=== PATIENT | female | born 1960 | race Caucasian/White ===

== ENCOUNTER → 2024-01-07 08:58 | Outpatient (REF) | payer OTHER, SELFPAY | LOC: RAD 08:58 | PROVIDERS: ATTENDING PHYSICIAN Surgery Vascular Surgery | DX: I77.9 Disorder of arteries and arterioles, unspecified (principal) | CPT/HCPCS: 93922 ==

== ENCOUNTER → 2024-01-14 13:14 | Outpatient (REF) | payer OTHER, SELFPAY | LOC: HWRAD 13:14 | PROVIDERS: ATTENDING PHYSICIAN Surgery Vascular Surgery; FAMILY PHYSICIAN Family Medicine | DX: I77.9 Disorder of arteries and arterioles, unspecified (principal) | CPT/HCPCS: 75635; Q9967 ==

== ENCOUNTER 2024-02-26 06:15 | Inpatient (IN) | payer OTHER, SELFPAY ==
[2024-02-18 09:32] VITALS: BMI 28.7
[2024-02-18 10:06] LABS: % Basophils 0.6 % (0-2); % Eosinophils 1.2 % (0-6); % Immature Granulocytes 0.5 % (0-0.5); % Lymphocytes 19.8 % (20.5-51.1); % Neutrophils 68.9 % (42.2-75.2); Absolute Basophils 0.1 10^3/uL (0-0.2); Absolute Eosinophils 0.1 10^3/uL (0-0.7); Absolute Immature Granulocytes 0.1 10^3/uL (0-0.05); Absolute Lymphocytes 2.4 10^3/uL (1.2-3.4); Absolute Monocytes 1.1 10^3/uL (0.1-0.6); Absolute Neutrophils 8.2 10^3/uL (1.4-6.5); Hematocrit 41.3 % (37.0-47.0); Mean Corp Hgb Conc. 33.9 g/dL (33.0-37.0); Mean Corpuscular Volume 91.6 fL (81.0-99.0); Mean Platelet Volume 9.7 fL (7.4-10.4); Nucleated Red Blood Cells % 0 %; Platelet Count 250 10^3/uL (130-400); Red Blood Cell Count 4.51 10^6/uL (4.20-5.40); Red Cell Dist. Width 12.8 % (11.5-14.5); White Blood Cell Count 11.9 10^3/uL (4.8-10.8)
[2024-02-18 10:20] LABS: INR 0.95; PT 12.5 Sec (11.4-14.6)
[2024-02-18 10:21] LABS: APTT 27.4 Sec (23.4-35.0)
[2024-02-18 10:24] LABS: Blood Urea Nitrogen 11 mg/dl (7-17); Calcium 9.9 mg/dl (8.4-10.2); Carbon Dioxide 25 mmol/L (22-30); Chloride 103 mmol/L (98-107); Estimated Creatinine Clearance 81 ml/min; Glucose 128 mg/dl (70-99); Potassium 4.3 mmol/L (3.5-5.1); Sodium 135 mmol/L (135-145); eGFR > 60.00
[2024-02-26] VITALS (21 sets, daily range): BP systolic 104–178; BP diastolic 44–92
[2024-02-26] MEDS: BACTROBAN NASAL 1 GRAM NASAL (07:00)
[2024-02-26] MEDS: PERIDEX 0.12% ORAL RINSE 15 ML PO (07:10)
--- NOTE | 2024-02-26 08:09 | W.SUR.PREOP ---
Pre-Operative Surgical Note
-
I have examined this patient prior to the performance of the scheduled procedure.
The patient's condition is unchanged from the time of the current History and
Physical and the patient is able to undergo the scheduled procedure.
[2024-02-26 09:09] LABS: ACT-LR - POC 326 Seconds (116-155)
[2024-02-26 10:04] LABS: ACT-LR - POC 308 Seconds (116-155)
--- NOTE | 2024-02-26 10:41 | W.IMMPOSTOP ---
Surgical Immed Post Op Note
-
Primary Surgeon: Dr. Marvel Bautista MD
Assisting Surgeon: Dr. Lonnie Maher MD, PhD, PGY-1
Pre-op Diagnosis: Distal aortoiliac calcification and high grade stenosis
Post-op Diagnosis: Distal aortoiliac calcification and high grade stenosis
Procedure Performed: Diagnostic aortic and bilateral iliac arteriogram; bilateral common iliac artery intravascular lithotripsy with balloon angioplasty; aortoiliac stent grafting with AFX unibody device; uncovered self expanding stent in distal
left common iliac artery
Anesthesia Type: General
Specimen / Cultures: None
Estimated Blood Loss: 300cc
Complications: None
Operative Findings: Extensive disease was noted in the distal aorta and common iliac artery bifurcation. In particular, extensive high grade stenosis noted in the proximal left common iliac artery. Bilateral common iliac artery intravascular
lithotripsy was performed followed by sequential balloon angioplasty to 4mmHg and 6mmHg pressures. Aortoiliac stent grafting was performed with AFX unibody device with coverage across the common iliac bifurcation. At the conclusion of the case, a
small dissection was noted in the distal left common iliac artery, so a covered stent was placed. A perclose device was used to close the right groin. The left sheath was removed and held with manual pressure.
[2024-02-26 11:17] LABS: Hemoglobin 11.9 g/dL (12.0-16.0); Mean Corp Hgb Conc. 33.1 g/dL (33.0-37.0); Mean Corpuscular Volume 93.8 fL (81.0-99.0); Mean Platelet Volume 9.5 fL (7.4-10.4); Platelet Count 167 10^3/uL (130-400); Red Blood Cell Count 3.84 10^6/uL (4.20-5.40); Red Cell Dist. Width 12.5 % (11.5-14.5); White Blood Cell Count 6.7 10^3/uL (4.8-10.8)
[2024-02-26 11:27] LABS: INR 1.11; PT 14.1 Sec (11.4-14.6)
[2024-02-26 11:28] LABS: APTT 31.9 Sec (23.4-35.0)
[2024-02-26 11:31] LABS: Blood Urea Nitrogen 6 mg/dl (7-17); Calcium 8.2 mg/dl (8.4-10.2); Carbon Dioxide 22 mmol/L (22-30); Chloride 110 mmol/L (98-107); Estimated Creatinine Clearance 95 ml/min; Glucose 213 mg/dl (70-99); Potassium 3.9 mmol/L (3.5-5.1); Sodium 136 mmol/L (135-145); eGFR > 60.00
[2024-02-26] MEDS: NSS 1000 IV ×2 (11:54→17:57)
[2024-02-26] MEDS: PLAVIX 300 MG PO (11:56)
[2024-02-26] MEDS: BICITRA 30 ML PO (12:45)
[2024-02-26] MEDS: PROTONIX IV 40 MG IV (12:48)
--- NOTE | 2024-02-26 13:26 | SUR.PHASEI ---
vss throughout PACU stay. neurological checks good, slow to initially wake to talk, alert and oriented when fully awake, Denies pain, annoyed with O2 cannula and monitoring, denies pain. after plavix PO- and need to keep patient flat; c/o
indigestion. Dr Smith advised - protonix IV given and given Bicitra PO. spit bicitra and could not finish dose. [employer] contacted with lab results - note elevated glucose. pulse (DP and PT) palpable throughout stay in pacu
[2024-02-26] MEDS: NSS (PRESERVATIVE FREE) IV (14:04)
[2024-02-26 14:07] LABS: Glycohemoglobin (HgbA1c) 5.9 % (4.0-5.6)
--- NOTE | 2024-02-26 14:17 | OR.RPT ---
Operative Report
Operative Report
Date of Operation: 02/26/2024
Pre Op Diagnosis: Severe calcified atherosclerotic aortoiliac occlusive disease
Post Op Diagnosis: Severe calcified atherosclerotic aortoiliac occlusive disease
Procedure:
1.) BILATERAL intravascular lithotripsy to calcified common iliac artery stenoses (8 mm x 60 mm M5+ shockwave balloons bilaterally)
2.) Aortoiliac stent grafting using Endologix AFX device (80�30/13�40)
3.) Self-expanding stent placement to distal left common iliac artery/iliac bifurcation/proximal external iliac artery (8 mm x 40 mm Inova stent)
4.) Introduce wire/catheter into aorta from BILATERAL femoral artery access
5.) Ultrasound-guided percutaneous access BILATERAL common femoral arteries
6.) ProGlide closure of right common femoral artery access
Surgeon: Marvel Bautista III, MD
Chief Physical Therapist: Lonnie Maher MD PhD, PGY1
Anesthesia: General
Fluoroscopy:
30.4 minutes
490 mGy
107.15 DAP
Complications: None
Estimated Blood Loss: 100 cc
History and Indications for Procedure: 63-year-old female with severe calcified atherosclerotic disease involving her distal abdominal aorta and bilateral common iliac arteries.
Procedure in Detail: Gwendolyn Houser was correctly identified and placed supine on the operating table. After adequate induction of anesthesia the abdomen, pelvis and bilateral groins were positioned, prepped and draped in the usual sterile fashion.
Preoperative antibiotics were administered. A timeout procedure was performed with the nursing and anesthesia staff confirming the patients identity as well as the nature and laterality of the procedure.
Under ultrasound guidance, bilateral femoral artery sheath access was obtained. The arteries were patent. Posterior calcified plaque was present in the left common femoral artery. A pre-close technique was performed on the right femoral artery
access with 2 offset Proglide closure devices. The sutures were secured and tucked under surgical towels for use at the end of the case. An 8 Fr sheath was placed into the right femoral access. A 7 Fr sheath was placed into the left femoral access.
The patient was systemically heparinized.
On the right, a Bentson wire and pigtail catheter were advanced into the distal abdominal aorta. A diagnostic aortobiiliac arteriogram was performed with the pigtail catheter along with a retrograde left iliac arteriogram from the left femoral
sheath. The calcified distal aortic occlusive disease along with the bilateral calcified common iliac artery disease was clearly identified. Under roadmap guidance using a Glidewire and Quickcross catheter, the heavily calcified left common iliac
artery stenosis was crossed. The wire and catheter were advanced into the abdominal aorta. I then exchanged out for a 0.014 wire. On the right similarly I exchanged out for a 0.014 wire. Using a 4 mm angioplasty balloon I predilated the left
common iliac artery stenosis. Due to the heavily and severely calcified nature of the aortobiiliac disease and in an effort to modify the calcium to achieve maximum luminal gain with endovascular intervention I elected to proceed with intravascular
lithotripsy. BILATERAL 8 mm x 60 mm M5+ Shockwave balloons were placed across the common iliac artery stenoses under roadmap guidance. Alternating rounds of lithotripsy pulse delivery at sub-nominal pressure and angioplasty at nominal pressure was
performed. In between rounds of pulse delivery and angioplasty the balloon was deflated and repositioned under roadmap guidance. All 300 pulses were delivered from each balloon. Subsequent arteriogram demonstrated an excellent technical result with
significant improvement in the appearance of the common iliac arteries bilaterally.
From the right femoral access a KMP catheter and the 0.014 wire were advanced to the proximal descending thoracic aorta. The wire was exchanged out for a Lunderquist wire and the position marked on the back table. Over the Lunderquist wire in the
right femoral access I placed the AFX introducer sheath and advanced the radio-opaque sheath tip to the abdominal aorta. An En-Snare catheter was placed over the 0.014 wire from the left femoral access and advanced to the aortic bifurcation. The
En-Snare was then advanced through to the catheter tip.
The contralateral limb wire of the AFX main body was introduced through the introducer sheath and advanced to the aortic bifurcation. The 22-40/13-40 AFX bifurcated main body was then loaded onto the Lunderquist wire and advanced through the
introducer sheath. The wire was snared from the contralateral side and pulled out the left femoral access and the AFX2 main body was advanced until the limbs were above the aortic bifurcation. The entire system was then pulled down onto the aortic
bifurcation. The main body was then deployed by pulling the control cord.
The contralateral limb was then deployed by pulling the yellow limb cover. Once this was completed I advanced a pigtail catheter over the contralateral limb wire until the tip was in contact with the wire lock. The contralateral limb was then pulled
as I advanced the pigtail up to release it from the wire lock. The wire was removed and the formed pigtail catheter was then advanced proximally in the aorta. A Worl[place] wire was then placed through the pigtail catheter and the catheter removed.
The ipsilateral limb was deployed by pinning the inner core and retracting the AFX introducer sheath.
The delivery system was removed on the right. Bilateral 8 mm angioplasty balloons were advanced into the AFX iliac limbs. Balloon angioplasty was performed on the bilateral limbs simultaneously to nominal pressure.
A completion aortogram demonstrated an excellent technical result. The AFX stent and iliac limbs were widely patent. The iliac bifurcations were preserved bilaterally. On the left there appeared to be a flow-limiting circumferential dissection in
the distal [place] common iliac artery and at the iliac bifurcation. The location of the dissection was confirmed on retrograde imaging from the left femoral sheath. I treated this with an 8 mm x 40 mm self-expanding [employer] Inova stent.
The stent was placed in the desired location and deployed under radiographic guidance. Subsequent arteriogram demonstrated an excellent technical result with brisk flow through the left iliac limb which was widely patent. The distal [place] common
iliac artery, iliac bifurcation and external iliac artery on the left were widely patent.
Satisfied with this result I then concluded the procedure. The Proglide sutures on the right were secured after removing the sheath. An additional ProGlide closure device was fired at the 12 o'clock position on the right to achieve complete
hemostasis. Protamine was administered. The 7 [place] sheath was removed from the left femoral access. Manual pressure was applied to the puncture site. Hemostasis was achieved bilaterally.
Sterile dressings were applied.
The patient tolerated the procedure well and was taken to the PACU in stable condition.
Attestation: I was present and responsible for the entire procedure
Signed:
Marvel Bautista III, MD
[facility] Vascular Surgery
[phone] (cell)
[2024-02-26 14:20] LABS: Glucose - Point of Care 129 mg/dl (70-99)
[2024-02-26 14:56] LABS: Magnesium 1.8 mg/dl (1.6-2.3)
--- NOTE | 2024-02-26 15:04 | CON.INTV ---
Consultation
Consultation Request
Date/Time Consultation Requested: 02-26-24
Date/Time Consultation Performed: 02-26-24
Requesting Provider: Dr Bautista
Performing Provider: Dr Cárdenas
Reason for Consultation: Aortoiliac stenting
Medical History
-
Chief Complaint: postop aortoiliac stenting
History of Present Illness:
Mrs Gwendolyn Houser is a 63/W adm for scheduled bilateral common iliac lithotripsy and aortoiliac stenting in view of high grade stenosis PVD. Known to Dr Bautista, prepared for surgery. Former smoker, not on BDs or O2
Received bilateral common iliac lithotripsy, aortoiliac stenting with no issue today
Seen at ICU, present, denies pain, appears comfortable
Past Medical History
Past Medical History: HTN, Hypercholesterolemia and Other (AISHA. Cavernous angioma Jun 2021)
Past Surgical History: and Other (R ankle surgery 2000. CEA. L spine cyst excission 2018)
Social History
Tobacco: Former Smoker
Alcohol: None
Drug: None
Personal:
Living: With Family
Family History
Family History: Cancer (F: lung) and Other (M: COPD)
Allergies / Home Medications
Allergies
Allergy/AdvReac Type Severity Reaction Status Date / Time
No Known Allergies Allergy Unverified 02/11/24 13:02
Home Medications
�Medication �Instructions �Recorded �Confirmed �Last Taken �Type
acetaminophen 650 mg 2 tab PO BID Pain 07/29/21 02/26/24 02/23/24 History
tablet,extended release (Tylenol
Arthritis)
aspirin 81 mg tablet,delayed 81 mg PO HS Blood clot 07/29/21 02/26/24 02/25/24 History
release prevention/tx
cholecalciferol (vitamin D3) 25 1,000 units PO DAILY Supplement 07/29/21 02/26/24 02/25/24 History
mcg (1,000 unit) tablet
coenzyme [id number] E 100 mg-100 200 mg PO DAILY Supplement 07/29/21 02/26/24 02/25/24 History
unit capsule
levothyroxine 125 mcg tablet 125 mcg PO DAILY AT 0700 Thyroid 07/29/21 02/26/24 02/26/24 History
rosuvastatin 10 mg tablet 10 mg PO QPM High cholesterol 07/29/21 02/26/24 02/26/24 History
verapamil 180 mg tablet,extended 180 mg PO BID Heart 07/29/21 02/26/24 02/26/24 History
release disease/condition
bismuth subsalicylate 262 mg 1 tab PO PRN PRN indigestion 08/09/21 02/11/24 Unknown History
chewable tablet ([place] Bismuth)
calcium carbonate (Antacid 2 tab PO Q2HPRN PRN indigestion 08/10/21 02/11/24 Unknown Rx
(calcium carbonate))
lisinopril 40 mg tablet 40 mg PO DAILY Blood Pressure 02/11/24 02/26/24 02/26/24 History
metoprolol succinate 50 mg 50 mg PO HS Heart Disease/Condition 02/11/24 02/26/24 02/26/24 History
tablet,extended release 24 hr
nicotine (polacrilex) 2 mg buccal 2 mg buccal Q8H PRN SMOKING 02/11/24 02/11/24 Unknown History
lozenge CESSATION
Review of Systems
-
History Source: Patient
All other systems: Negative unless noted
Cardiac: Other (trace incisional pain)
Vitals / Labs / Diagnostic Testing
Vital Signs
Temp Pulse Resp BP Pulse Ox
98.4 F 60 15 104/92 98
02/26/24 12:45 02/26/24 13:30 02/26/24 13:30 02/26/24 13:15 02/26/24 13:30
Lab Data
02/26/24 11:10
02/26/24 11:10
Laboratory Results
02/26/24
11:10
PT 14.1
INR 1.11
APTT 31.9
Diagnostic Testing:
Physical Exam
-
HEENT: Normocephalic and Moist Mucous Membranes
Cardiovascular: Regular Rhythm and Peripheral Edema (n)
Respiratory: Clear and Non-Labored Respirations
GI: Soft, Non Distended and Non Tender
Neurology: Awake, AO x 3 and No Motor Deficits
Skin: Warm
General: Respiratory Distress (n)
Assessment
-
Assessment:
Mrs Gwendolyn Houser is a 63/W adm for scheduled for bilateral common iliac lithotripsy and aortoiliac stenting in view of high grade stenosis
Impression:
PVD: s/p bilateral common iliac lithotripsy, aortoiliac stenting
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
HTN
HLD
Hypothyroidism
Cavernous hemangioma
Former smoker
Plan:
Postoperative surgical intensive care unit monitoring
Supplemental oxygen as needed
Incentive spirometry
Aspiration precautions
CXR portable with no infiltrates
Neuro and vascular checks per protocol
Vascular surgery following-correspondence and operative notes reviewed
DVT prophylaxis
Early nutrition
Early mobilization
Critical care time: 35 min
--- NOTE | 2024-02-26 15:08 | PTCARENOTE ---
Pt admitted to ICU bed 3370 from PACU at 1300. Pt AAOx3. Pt denies pain. Sinus rhythm. Right radial line intact. Right groin incision C/DI with surgical glue. Left groin site C/D/I with gauze and Tegaderm. Palpable pedal pulses. Bautista
catheter draining clear yellow. All other assessments remain unchanged. at bedside.
[2024-02-26] MEDS: HEPARIN 5000 UNITS SC ×2 (16:11→23:06)
[2024-02-26 16:54] LABS: Glucose - Point of Care 134 mg/dl (70-99)
[2024-02-26] MEDS: TOPROL XL 50 MG PO (17:49)
[2024-02-26] MEDS: CRESTOR 10 MG PO (17:49)
[2024-02-26] MEDS: CALAN EXTENDED RELEASE 180 MG PO (17:49)
--- NOTE | 2024-02-26 18:26 | PTCARENOTE ---
BP noted as high as 170s/70s. Vascular FILTER FILLER notified. Med changes made and given per order.
[2024-02-26 19:13] LABS: ALT (SGPT) 11 U/L (0-35); AST (SGOT) 18 U/L (14-36); Albumin 3.6 g/dl (3.5-5.0); Alkaline Phosphatase 64 U/L (38-126); Phosphorus 3.4 mg/dl (2.5-4.5); Total Bilirubin 0.4 mg/dl (0.2-1.3); Total Protein 5.5 g/dl (6.3-8.2)
--- NOTE | 2024-02-26 20:00 | PTCARENOTE ---
Rec'd pt resting in bed, at bedside, ALMARAZ, follows commands, BRIA at 3mm, q1h neuro checks, denies pain, SR, R garland vázquez site tender, ecchymotic, swollen, B Nuñez, APPAREL PATTERNMAKER aware, kathie dc'd per order,see q1hr neurovasc flow sheet, distal
pulses via doppler= R distal > than left, skin warm/dry, RA, lungs clear, sat 97,+ bowel sounds, no bm, abd soft/nontender, no n/v, mcclain draining clear yellow urine
[2024-02-26] MEDS: ASPIR LOW (ENTERIC COATED) 81 MG PO (21:44)
[2024-02-26 22:59] LABS: Glucose - Point of Care 206 mg/dl (70-99)
[2024-02-26] MEDS: TYLENOL 650 MG PO (23:06)
--- NOTE | 2024-02-26 23:11 | PTCARENOTE ---
2 tabs tylenol 650 mg po given for low back ache
[2024-02-27] VITALS (13 sets, daily range): BP systolic 97–152; BP diastolic 51–71; BMI 28.4
--- NOTE | 2024-02-27 00:03 | PTCARENOTE ---
sys reviewed, back ache gone, neurovasc & neuro checks intact
--- NOTE | 2024-02-27 02:00 | PTCARENOTE ---
c/o slight headache, requests no pain meds , Stephanie Nuñez NP aware
--- NOTE | 2024-02-27 04:00 | PTCARENOTE ---
sys reviewed, changes noted
[2024-02-27 04:37] LABS: APTT 29.1 Sec (23.4-35.0); INR 1.09; PT 13.9 Sec (11.4-14.6)
[2024-02-27 04:40] LABS: Hematocrit 31.5 % (37.0-47.0); Hemoglobin 10.8 g/dL (12.0-16.0); Mean Corp Hgb Conc. 34.3 g/dL (33.0-37.0); Mean Corpuscular Hgb 31.4 pg (27.0-31.0); Mean Corpuscular Volume 91.6 fL (81.0-99.0); Mean Platelet Volume 9.8 fL (7.4-10.4); Platelet Count 202 10^3/uL (130-400); Red Blood Cell Count 3.44 10^6/uL (4.20-5.40); Red Cell Dist. Width 12.4 % (11.5-14.5); White Blood Cell Count 16.5 10^3/uL (4.8-10.8)
--- NOTE | 2024-02-27 04:44 | DOWNTIME ---
There was a [facility] Client Clinical Unit Coordinator Downtime on 02/06/2024 from 0100 to 02/06/2024 at 0322. Downtime documentation of patient's care, including medication administrations, has been reconciled in the electronic record per guidelines. Refer to the
patient's paper chart under the miscellaneous tab to see printed paper medication records and downtime forms.
--- NOTE | 2024-02-27 05:05 | PTCARENOTE ---
c/o epigastric, chest pain & Left arm pain, -' not sure if it's indigestion', B Joaquin, CLINICAL DATA ASSISTANT aware, ekg done, Tums 1 po given as ordered
[2024-02-27 05:08] LABS: Blood Urea Nitrogen 7 mg/dl (7-17); Calcium 8.8 mg/dl (8.4-10.2); Carbon Dioxide 25 mmol/L (22-30); Chloride 109 mmol/L (98-107); Estimated Creatinine Clearance 94 ml/min; Glucose 104 mg/dl (70-99); Potassium 3.9 mmol/L (3.5-5.1); Sodium 136 mmol/L (135-145); eGFR > 60.00
[2024-02-27] MEDS: SYNTHROID 125 MCG PO (05:19)
[2024-02-27] MEDS: TUMS 1 TABLET PO (05:19)
[2024-02-27] MEDS: NSS 1000 IV (05:19)
[2024-02-27 07:24] LABS: Glucose - Point of Care 116 mg/dl (70-99)
[2024-02-27] MEDS: PLAVIX 75 MG PO (08:05)
[2024-02-27] MEDS: VITAMIN D3 (cholecalciferol) 25 MCG PO (08:05)
[2024-02-27] MEDS: CALAN EXTENDED RELEASE 180 MG PO (08:05)
[2024-02-27] MEDS: ZESTRIL 40 MG PO (08:05)
[2024-02-27] MEDS: PROTONIX IV 40 MG IV (08:06)
[2024-02-27] MEDS: HEPARIN 5000 UNITS SC (08:06)
[2024-02-27] MEDS: NSS (PRESERVATIVE FREE) 10 ML IV (08:06)
--- NOTE | 2024-02-27 08:08 | W.PN.VS ---
Today's Communication / Plan
-
See plan above
Assessment/Plan
-
Looks great postop day 1 from intravascular lithotripsy and aortoiliac stent grafting for severe aortoiliac calcified occlusive disease.
ARBEN Bautista
Out of bed
Regular diet
Dual antiplatelet therapy
Anticipate discharge later this afternoon
Marvel Bautista III, MD
[facility] Vascular Surgery
[phone] (cell)
Subjective Data
-
Date of Service: February 27, 2024
Looks great
Sitting up in bed
No complaints this morning
Hungry and wants to eat breakfast
Denies leg pain/groin pain
Objective Data
-
Vital Signs
Temp Pulse Resp BP Pulse Ox
98.7 F 60 27 141/58 95
02/27/24 07:30 02/27/24 06:00 02/27/24 06:00 02/27/24 06:00 02/27/24 06:00
Intake and Output
02/26/24 02/27/24 02/28/24
06:59 06:59 06:59
Intake Total 2760 / 2840 200 / 200
Output Total 6130 / 6130 125 / 125
Balance -3370 / -3290 75 / 75
Intake:
Oral fluids 1450 / 1450 120 / 120
IV fluids (Total) 1310 / 1390 80 / 80
Nss 1,000 ml @ 80 mls/hr IV . 980 / 1060 80 / 80
[id number] MAY Rx#:[id number]
nss 330 / 330
Output:
UrineLily 6130 / 6130 125 / 125
Lab Results
02/27/24 03:00
02/27/24 03:00
Calcium 8.8 mg/dl (8.4-10.2) 02/27/24 03:00
Phosphorus 3.4 mg/dl (2.5-4.5) 02/26/24 11:10
Magnesium 1.8 mg/dl (1.6-2.3) 02/26/24 11:10
Total Bilirubin 0.4 mg/dl (0.2-1.3) 02/26/24 11:10
AST 18 U/L (14-36) 02/26/24 11:10
ALT 11 U/L (0-35) 02/26/24 11:10
Alkaline Phosphatase 64 U/L (38-126) 02/26/24 11:10
Total Protein 5.5 g/dl (6.3-8.2) L 02/26/24 11:10
Albumin 3.6 g/dl (3.5-5.0) 02/26/24 11:10
Physical Exam
-
NAD
Non labored breathing
Alert/oriented
Groins flat/soft bilat
Palp pedal pulses bilat
Feet pink/warm bilat
--- NOTE | 2024-02-27 08:21 | PTCARENOTE ---
Lily randle/alexander. Pt OOB in chair with steady gait. Eating breakfast at this time.
--- NOTE | 2024-02-27 12:14 | PTCARENOTE ---
Ambulating in hallway with steady gait. Reports some pain to upper legs with ambulation. Good Appetite. Voiding in bathroom without difficulty.
[2024-02-27] MEDS: TYLENOL 650 MG PO (12:33)
--- NOTE | 2024-02-27 13:20 | CM ---
Patient seen at bedside in ICU. Patient states that she lives with her in a 2 story home but they have a first floor set up. Patient PCP is Dr. Galan and she uses no DME at this time. Patient uses the [facility] in [place] and
that she is very independent of ADL's and IADL's. Patient states that she plans to go home today with daughter providing transportation and that she is not anticipating any needs at this time. CM will continue to follow for discharge planning needs.
Plan; home with no needs.
--- NOTE | 2024-02-27 13:59 | W.DS.TRANS ---
DC Summary - First Aid Instructor
-
Discharge Instructions:
Discharge Diagnosis/Procedures Peripheral arterial disease treated with aortic
stenting
Diet As tolerated,Low Cholesterol
Activity No strenuous activity
Driving Restrictions No driving for 1 week
Bathing Restrictions OK to Shower
Instructions:
Stand-Alone Forms: DC Instr - Vascular OR
Changes to Home Medications: Yes
Discharge Medications:
DC Medications w/original date entered in [employer]
acetaminophen 650 mg tablet,extended release (Tylenol Arthritis) 2 tab PO BID Pain 07/29/21
aspirin 81 mg tablet,delayed release 81 mg PO HS Blood clot prevention/tx 07/29/21
cholecalciferol (vitamin D3) 25 mcg (1,000 unit) tablet 1,000 units PO DAILY Supplement 07/29/21
coenzyme [id number] E 100 mg-100 unit capsule 200 mg PO DAILY Supplement 07/29/21
levothyroxine 125 mcg tablet 125 mcg PO DAILY AT 0700 Thyroid 07/29/21
rosuvastatin 10 mg tablet 10 mg PO QPM High cholesterol 07/29/21
verapamil 180 mg tablet,extended release 180 mg PO BID Heart disease/condition 07/29/21
bismuth subsalicylate 262 mg chewable tablet ([place] Bismuth) 1 tab PO PRN PRN indigestion 08/09/21
calcium carbonate (Antacid (calcium carbonate)) 2 tab PO Q2HPRN PRN indigestion 08/10/21
lisinopril 40 mg tablet 40 mg PO DAILY Blood Pressure 02/11/24
metoprolol succinate 50 mg tablet,extended release 24 hr 50 mg PO HS Heart Disease/Condition 02/11/24
nicotine (polacrilex) 2 mg buccal lozenge 2 mg buccal Q8H PRN SMOKING CESSATION 02/11/24
clopidogrel 75 mg tablet 75 mg PO DAILY #90 tabs 02/27/24
Home Medication Changes
Added:
clopidogrel 75 mg tablet 75 mg PO DAILY #90 tabs 02/27/24
Pending Results: No
--- NOTE | 2024-02-27 14:00 | W.PN.PUL3 ---
Documented by User: Paddy Moore MD, Resident 02/27/24 14:08
Today's Communication / Plan
-
Postop day 1 with no complaints, Bautista discontinued
Regular diet
Resume home medications
Assessment
-
-
Assessment:
Mrs Gwendolyn Houser is a 63/W adm for scheduled for bilateral common iliac lithotripsy and aortoiliac stenting in view of high grade stenosis
Impression:
PVD: s/p bilateral common iliac lithotripsy, aortoiliac stenting
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
HTN
HLD
Hypothyroidism
Cavernous hemangioma
Former smoker
Plan:
Postoperative surgical intensive care unit monitoring postop day 1.
CXR portable with no infiltrates
Patient out of bed, Bautista discontinued with no requirement for oxygen supplementation.
Appears comfortable sitting on a chair.
Regular diet
Resume home medications on discharge.
Vascular surgery following-correspondence and operative notes reviewed
Subjective Data
-
Date of Service:
Date of Service: February 27, 2024
Chief Complaint: Pulmonary Follow Up
Subjective:
No remarkable events overnight
Review of Systems
General: Fever (n), Chills (n), Pain (n) and Rash (n)
HEENT: Dysphagia (n)
Cardiopulmonary: Dyspnea (n) and Cough (n)
GI: Abdominal Pain (n), Nausea (n) and Diarrhea
Neuro: Headache (n) and Weakness (n)
Genitourinary: Bautista (n)
Objective Data
Data Reviewed
Vital Signs / I&O / Oxygen:
Vital Signs
Temp Pulse Resp BP Pulse Ox
98.6 F 68 21 128/54 97
02/27/24 11:04 02/27/24 13:00 02/27/24 10:28 02/27/24 12:28 02/27/24 13:42
Intake and Output
02/26/24 02/27/24 02/28/24
06:59 06:59 06:59
Intake Total 2760 / 2840 280 / 280
Output Total 6130 / 6130 225 / 225
Balance -3370 / -3290 55 / 55
SaO2 97
Nasal Cannula flow liters per 2
minute
Physical Exam
General: Respiratory Distress (n) and Comfortable
HEENT: Normocephalic, Moist Mucous Membranes and Thrush (n)
Cardiovascular: S1-S2, Regular Rhythm, Murmur (n), Rub (n) and Other (Mild incisional pain)
Respiratory: Clear and Non-Labored Respirations
GI: Soft, Non Distended, Non Tender and Normal Bowel Sounds
Neurology: Awake, Alert and AO x 3
Skin: Warm, Good Color, Cyanosis (n) and Rash (n)
Labs/Micro/Reports
Lab Data
02/27/24 03:00
02/27/24 03:00
Laboratory Results
02/27/24
03:00
PT 13.9
INR 1.09
APTT 29.1

Documented by User: Jose Hurley MD 02/27/24 14:55
Today's Communication / Plan
-
Postop day 1 with no complaints, Bautista discontinued
Regular diet
Resume home medications
D/c
Assessment
-
-
Assessment:
Mrs Gwendolyn Houser is a 63/W adm for scheduled for bilateral common iliac lithotripsy and aortoiliac stenting in view of high grade stenosis
Impression:
PVD: s/p bilateral common iliac lithotripsy, aortoiliac stenting
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
HTN
HLD
Hypothyroidism
Cavernous hemangioma
Former smoker
Plan:
Postoperative surgical intensive care unit monitoring postop day 1.
CXR portable with no infiltrates
Patient out of bed, Bautista discontinued with no requirement for oxygen supplementation.
Appears comfortable sitting on a chair.
Regular diet
Resume home medications on discharge.
Vascular surgery following-correspondence and operative notes reviewed
D/c home by melquiades sx
Reconsult prn
ATTENDING PHYSICIAN ATTESTATION:
(Follow-up Visit:)
I personally saw and evaluated the patient along with the Resident Dr Moore.
Discussed with Resident and discussed in rounds with MDT.
I agree with Resident�s findings and plan as documented in the resident�s note, which was edited by myself.
Subjective Data
-
Subjective:
No remarkable events overnight
Denies major complaints
[facility], ready for d/c today
--- NOTE | 2024-02-27 14:13 | PTCARENOTE ---
Pt discharged to home with daughter. IV and tele pack d/c'd. All discharge instructions, meds and f/u visits reviewed with pt and her daughter.
--- NOTE | 2024-02-27 14:37 | PN.CDI ---
CDI
- -
CDI:
Physician Documentation Request
Admit Date: 02/26/24 06:15
Dear Doctor Lily,
Please review the following and provide your response in the progress notes.
Clinical Indicators:
- 02/25 Post Op note indicates EBL 300cc
- No pmh anemia
- 3L IVF given
Laboratory Tests
02/18/24 02/26/24 02/27/24
09:39 11:10 03:00
Hgb 14.0 11.9 L 10.8 L
Please clarify the appropriate diagnosis, if significant, that supports the above lab abnormalities and additional evaluation, monitoring and/or treatment rendered:
Anemia, due to acute blood loss and hemodilution
Anemia due to hemodilution only
Abnormal lab values, clinically insignificant
Other
Use of terms such as suspected, likely, concern for, or probable (associated with a specific diagnosis that is being evaluated, monitored, or treated as if it exists) are acceptable and can be coded in the inpatient setting, when documented at the
time of discharge.
Thank you,
Tari North RN
CDI Specialist
Please use your independent medical judgment in providing your response.
--- NOTE | 2024-02-27 14:54 | W.DCSUMMARY ---
Discharge Summary
Discharge Data
Date of Admission: 02/26/24
Date of Discharge: 02/27/24
-
Pending Results: No
Additional Pending Results:
Attending: Marvel Bautista III, MD
Consultants: Pulmonary medicine
Allergies: NKDA
Procedure with date: BILATERAL intravascular lithotripsy to calcified common iliac artery stenoses (8 mm x 60 mm M5+ shockwave balloons bilaterally), Aortoiliac stent grafting using Endologix AFX device (22�40/13�40), Self-expanding stent placement
to distal left common iliac artery/iliac bifurcation/proximal external iliac artery (8 mm x 40 mm Inova stent), Introduce wire/catheter into aorta from BILATERAL femoral artery access, Ultrasound-guided percutaneous access BILATERAL common femoral
arteries, ProGlide closure of right common femoral artery access: 02/26/2024
History of present illness: The patient is an 63-year-old female with multiple medical conditions including: carotid stenosis, hypertension, hyperlipidemia, peripheral arterial disease. Patient presented on 02/26/2024 for scheduled procedure with
Lily. Patient presented at baseline health with no reports of recent illness or trauma.
Hospital Course: Briefly, the patient underwent scheduled aorto iliac stent grafting without complications, and recovered in PACU. Following recovery phase one and two patient was transferred to intensive care unit per protocol for continued
hemodynamic monitoring. Hardware Developer consulted to aid in medical management from a critical care perspective. POD #1 (02/27/2024) bilateral groin incisions clean dry intact with no evidence of hematoma or edema. Patient tolerating PO diet. Arterial
line, IV fluids, and Bautista catheter discontinued. Patient able to ambulate without difficulty or incident. Patient voiding following catheter removal. Patient stable for discharge to home.
Prescriptions and follow up appointment are included in the DC summary information security systems instructor note. All instructions were given to the patient in both written and verbal form and the patient expressed understanding.
Discharge Plan
-
Patient Disposition: Home (Routine Discharge)
Discharge Diagnosis/Procedures: Peripheral arterial disease treated with aortic stenting
Condition: Good
Diet: As tolerated and Low Cholesterol
Activity: No strenuous activity
Driving Restrictions: No driving for 1 week
Bathing Restrictions: OK to Shower
Stand Alone Forms: DC Instr - Vascular OR
Referrals:
Nafisa Galan MD [Family Provider] -
Carisa Wilkerson CRNP [Specified Professional Personl] - 03/11/24 8:15 am
Prescriptions:
New
clopidogrel 75 mg Tablet
75 mg PO DAILY Qty: 90 0RF
Continued
verapamil 180 MG tablet extended release
180 mg PO BID
aspirin 81 MG tablet,delayed release (DR/EC)
81 mg PO HS
acetaminophen [Tylenol Arthritis] 650 MG tablet extended release
2 tab PO BID
levothyroxine 125 MCG tablet
125 mcg PO DAILY AT 0700
Rx Instructions:
patient requires brand name Synthroid
rosuvastatin 10 MG tablet
10 mg PO QPM
coenzyme [id number] 1 CAP capsule
200 mg PO DAILY
cholecalciferol (vitamin D3) 1,000 UNITS tablet
1,000 units PO DAILY
calcium carbonate [Antacid (calcium carbonate)] 1 TABLET tablet,chewable
2 tab PO Q2HPRN PRN (Reason: indigestion) 0RF
nicotine (polacrilex) 2 mg Lozenge
2 mg BUCCAL Q8H PRN (Reason: SMOKING CESSATION)
metoprolol succinate 50 mg Tablet Extended Release 24 Hr
50 mg PO HS
lisinopril 40 mg Tablet
40 mg PO DAILY
Held
bismuth subsalicylate [Cool Bismuth] 1 TABLET tablet,chewable
1 tab PO PRN PRN (Reason: indigestion)
Hold Instructions: Resume on 04/12/24. Can continue once Plavix is stopped
Discharge Orders:
Discharge Patient (As Directed); Ordered 02/27/24
Ordered By: Theodora Strange
Discharge Date and Time
Discharge Date/Time: 02/27/24 14:22
Print Language: CAMBODIAN
--- NOTE | 2024-03-03 09:47 | W.PN.UPDATE ---
Update Note
Progress Note Update
CDI:
Physician Documentation Request
Admit Date: 02/26/24 06:15
Please review the following and provide your response in the progress notes.
Clinical Indicators:
- 02/25 Post Op note indicates EBL 300cc
- No pmh anemia
- 3L IVF given
Laboratory Tests
02/18/24 02/26/24 02/27/24
09:39 11:10 03:00
Hgb 14.0 11.9 L 10.8 L
Please clarify the appropriate diagnosis, if significant, that supports the above lab abnormalities and additional evaluation, monitoring and/or treatment rendered:
Anemia, due to acute blood loss and hemodilution
== END 2024-02-27 14:22 | disposition home or self-care (01) | DRG 269 ==
LOC: ICU 06:15
PROVIDERS: Nurse Practitioner Acute Care; ADMITTING PHYSICIAN Surgery Vascular Surgery; CONSULT PHYSICIAN Internal Medicine Pulmonary Disease; FAMILY PHYSICIAN Family Medicine
PROC: 047D3ZZ Dilation of Left Common Iliac Artery, Percutaneous Approach (ICD-10-PCS; 2024-02-26)
PROC: 04FD3ZZ Fragmentation of Left Common Iliac Artery, Percutaneous Approach (ICD-10-PCS; 2024-02-26)
PROC: 04V03DZ Restriction of Abdominal Aorta with Intraluminal Device, Percutaneous Approach (ICD-10-PCS; 2024-02-26)
PROC: 04FC3ZZ Fragmentation of Right Common Iliac Artery, Percutaneous Approach (ICD-10-PCS; 2024-02-26)
DX: I70.223 Atherosclerosis of native arteries of extremities with rest pain, bilateral legs (principal); D62 Acute posthemorrhagic anemia; I70.0 Atherosclerosis of aorta; E78.00 Pure hypercholesterolemia, unspecified; I10 Essential (primary) hypertension; E03.9 Hypothyroidism, unspecified; D18.02 Hemangioma of intracranial structures; I65.23 Occlusion and stenosis of bilateral carotid arteries; Z79.82 Long term (current) use of aspirin; Z79.899 Other long term (current) drug therapy; Z87.891 Personal history of nicotine dependence
CPT/HCPCS: 34705; 36415; 71045; 71046; 76937; 80048; 80053; 82962; 83036; 83735; 84100; 85025; 85027; 85610; 85730; 86850; 86900; 86901; 87070; 93005; C1725; C1760; C1769; C1773; C1876; C1894; C2628; C9764; C9765; Q9967

== ENCOUNTER → 2024-04-14 08:59 | Outpatient (REF) | payer OTHER, SELFPAY | LOC: RAD 08:59 | PROVIDERS: ATTENDING PHYSICIAN Registered Nurse; FAMILY PHYSICIAN Family Medicine | DX: I70.0 Atherosclerosis of aorta (principal); I77.9 Disorder of arteries and arterioles, unspecified | CPT/HCPCS: 93922; 93925; 93978 ==

== ENCOUNTER → 2024-10-17 12:46 | Outpatient (REF) | payer OTHER, SELFPAY | LOC: DHVS 12:46 | PROVIDERS: ATTENDING PHYSICIAN Surgery Vascular Surgery; FAMILY PHYSICIAN Internal Medicine; REFERRING PHYSICIAN Family Medicine | DX: I65.23 Occlusion and stenosis of bilateral carotid arteries (principal); I77.1 Stricture of artery | CPT/HCPCS: 93880; 93922; 93925; 93978 ==

== ENCOUNTER → 2025-02-02 11:05 | Outpatient (REF) | payer OTHER, SELFPAY | LOC: RCS 11:05 | PROVIDERS: ATTENDING PHYSICIAN Internal Medicine Interventional Cardiology; FAMILY PHYSICIAN Family Medicine | DX: I34.1 Nonrheumatic mitral (valve) prolapse (principal) | CPT/HCPCS: 93306 ==

== ENCOUNTER → 2025-10-26 10:01 | Outpatient (REF) | payer OTHER, SELFPAY | LOC: RAD 10:01 | PROVIDERS: ATTENDING PHYSICIAN Surgery Vascular Surgery; FAMILY PHYSICIAN Family Medicine | DX: I77.9 Disorder of arteries and arterioles, unspecified (principal); I65.23 Occlusion and stenosis of bilateral carotid arteries | CPT/HCPCS: 93880; 93922; 93978 ==